=== PATIENT | male | born 1990 | race American Indian/Alaskan Native ===

== ENCOUNTER 2019-12-31 01:10 | Emergency (ER) | payer OTHER ==
[~2019-12-31] VITALS: Ht 182.9 cm; Wt 79.4 kg
[~2019-12-31 01:10] MED LIST: CEPH500 PO; HYDACE5 PO
== END 2019-12-31 02:14 | disposition home or self-care (01) ==
LOC: ER 01:10
DX: S00.83XA Contusion of other part of head, initial encounter (principal); S70.212A Abrasion, left hip, initial encounter; S80.812A Abrasion, left lower leg, initial encounter; F17.200 Nicotine dependence, unspecified, uncomplicated; W19.XXXA Unspecified fall, initial encounter
CPT/HCPCS: 70150; 99283-25; A9270-GY